=== PATIENT | female | born 1990 | race Caucasian/White ===

== ENCOUNTER → 2021-02-19 | Day surgery (SDC) | payer OTHER ==
[2021-02-19 07:32] LABS: HCT 45.3 % (37.0-47.0); HGB 15.4 g/dl (12.5-16.0); MCH 32.6 pg (25.0-31.0); MCV 95.8 fL (78.0-100.0); MPV 11.5 fL (6.0-9.5); RBC 4.73 M/uL (4.20-5.40); WBC 5.7 K/uL (4.0-10.5)
== END | disposition home or self-care (01) ==
LOC: FAS 06:58
PROVIDERS: Surgery
DX: K64.0 First degree hemorrhoids (principal); K57.30 Diverticulosis of large intestine without perforation or abscess without bleeding; F17.210 Nicotine dependence, cigarettes, uncomplicated; M06.9 Rheumatoid arthritis, unspecified; M41.9 Scoliosis, unspecified; Z86.79 Personal history of other diseases of the circulatory system; Z90.710 Acquired absence of both cervix and uterus; Z20.822 Contact with and (suspected) exposure to COVID-19; Z82.49 Family history of ischemic heart disease and other diseases of the circulatory system; Z83.3 Family history of diabetes mellitus; Z87.448 Personal history of other diseases of urinary system
CPT/HCPCS: 36415; 93005; J2250; J2704; J7120